=== PATIENT | female | born 1960 | race Caucasian/White ===

== ENCOUNTER → 2025-03-07 14:17 | Outpatient (REF) | payer MEDICARE, OTHER, SELFPAY ==
[2025-03-07 15:09] LABS: Hematocrit 34.6 % (37.0-47.0); Hemoglobin 12.7 g/dL (12.0-16.0); Mean Corp Hgb Conc. 36.7 g/dL (33.0-37.0); Mean Corpuscular Volume 97.5 fL (81.0-99.0); Platelet Count 114 10^3/uL (130-400); Red Cell Dist. Width 12.2 % (11.5-14.5)
[2025-03-07 16:06] LABS: INR 1.00; PT 13.7 Sec (11.4-14.6)
[2025-03-07 16:07] LABS: APTT 29.5 Sec (23.4-35.0); Fibrinogen 338 MG/DL (199-459)
[2025-03-07 16:12] LABS: Reticulocyte Count 3.1 % (0.4-2.8)
== END ==
LOC: OID 14:17
PROVIDERS: ATTENDING PHYSICIAN Internal Medicine Hematology & Oncology; FAMILY PHYSICIAN Physician Assistant
DX: D69.6 Thrombocytopenia, unspecified (principal); R16.1 Splenomegaly, not elsewhere classified; D69.59 Other secondary thrombocytopenia; F10.19 Alcohol abuse with unspecified alcohol-induced disorder
CPT/HCPCS: 36415; 85025; 85045; 85384; 85610; 85730